=== PATIENT | male | born 1950 ===

== ENCOUNTER 2018-03-01 17:55 | Emergency (ER) | payer MEDICARE ==
--- NOTE | 2018-03-01 20:03 | UC ---
Lower Extremity/Ankle HPI - HPI Summary HPI Summary: 67 y/o male presents to the urgent care c/o left foot and ankle pain s/p slipping and twisting it on an uneven cement last night. Pt reports a similar injury happened about 2 weeks ago. But his foot is swollen and he is limping. Pain is 3/10 w/ walking and movement. Pt has not taking anything to alleviate symptoms, but he applied ice. Pt denies numbness or tingling sensation on the left lower extremity, calf pain, SOB, chest pain, abdominal pain, N/V/D. - History of Current Complaint Chief Complaint: UCLowerExtremity Stated Complaint: L FOOT COMPLAINT Time Seen by Provider: 03/01/18 19:55 Hx Obtained From: Patient Onset/Duration: Sudden Onset, Lasting Days - 1 day, Still Present Severity Initially: Mild Severity Currently: Mild Pain Intensity: 3 Pain Scale Used: 0-10 Numeric Aggravating Factor(s): Standing, Ambulation Alleviating Factor(s): Rest, Elevation, Ice Able to Bear Weight: Yes - Risk Factors Gout Risk Factors: Negative DVT Risk Factors: Negative Septic Arthritis Risk Factor: Negative - Allergies/Home Medications Allergies/Adverse Reactions: Allergies Allergy/AdvReac Type Severity Reaction Status Date / Time No Known Allergies Allergy Verified 03/01/18 18:16 Home Medications: Home Medications Artic Grace Oil* 03/01/18 [History] Ascorbic Acid TAB* [Vitamin C TAB*] 500 mg PO DAILY 03/01/18 [History Confirmed 03/01/18] Fish Oil/Borage/Flax/Om3,6,9 1 [Limon 3-6-9 Complex Softgel] 1 cap PO 03/01/18 [ History] Vitamin E CAP* 200 unit PO DAILY 03/01/18 [History Confirmed 03/01/18] PMH/Surg Hx/FS Hx/Imm Hx Previously Healthy: Yes Endocrine History: Dyslipidemia - Surgical History Surgical History: None - Family History Known Family History: Positive: Diabetes - Social History Occupation: Employed Full-time Lives: With Family Alcohol Use: Rare Substance Use Type: None Smoking Status (MU): Never Smoked Tobacco Review of Systems Constitutional: Negative Skin: Negative Eyes: Negative ENT: Negative Respiratory: Negative Cardiovascular: Negative Gastrointestinal: Negative Genitourinary: Negative Motor: Negative Neurovascular: Negative Musculoskeletal: Decreased ROM - left ankle, Other: - left ankle and foot pain and swelling s/p injury Neurological: Negative Psychological: Negative Is Patient Immunocompromised?: No All Other Systems Reviewed And Are Negative: Yes Physical Exam - Summary Physical Exam Summary: Vital Signs Reviewed: Yes General: well developed, well nourished obese male, sitting in the examining table w/o any apparent distress Eyes: Positive: Conjunctiva Clear - PERRLA, EOMI, ENT: Positive: Normal ENT inspection, Hearing grossly normal, Pharynx normal, TMs normal Neck: Positive: Supple, Nontender, No Lymphadenopathy Respiratory: Positive: Chest non-tender, Lungs clear, Normal breath sounds, No respiratory distress Cardiovascular: Positive: RRR, No Murmur, Pulses Normal, Brisk Capillary Refill Abdomen Description: Positive: Nontender, No Organomegaly, Soft. Negative: CVA Tenderness (R), CVA Tenderness (L) Bowel Sounds: Positive: Present Musculoskeletal: - Ankle: Pt is able to bear weight and ambulate w/ limping. The L ankle and foot are without obvious asymmetry or deformity when compared to the R ankle and foot. Mild Decreased ROM of ankle due to pain. Mild swelling at the lateral malleolus, with tenderness to palpation. No ecchymosis or bruising observed. No Tenderness to palpation over the medial malleolus , no swelling observed. Point tenderness over dorsal side of foot w/o swelling or bruising.Talar tilt test is negative for ligament laxity to valgus or varus stress. Negative anterior drawer. Peroneal nerve is intact with strong eversion and plantar flexion. Positive sensation over the Rt foot and Rt ankle, positive pulses, capillary refill intact Neurological Exam: Normal Psychological Exam: Normal Skin: warm and dry Triage Information Reviewed: Yes Vital Signs: Initial Vital Signs Temp 96.8 F 03/01/18 18:11 Pulse 74 03/01/18 18:11 Resp 16 03/01/18 18:11 BP 134/83 03/01/18 18:11 Pulse Ox 98 03/01/18 18:11 Lower Extremity Course/Dx - Course Course Of Treatment: 67 y/o male presents to the urgent care c/o left foot and ankle pain s/p slipping and twisting it on an uneven cement last night. Pt reports a similar injury happened about 2 weeks ago. But his foot is swollen and he is limping. Pain is 3/10 w/ walking and movement. Pt has not taking anything to alleviate symptoms, but he applied ice. Pt denies numbness or tingling sensation on the left lower extremity, calf pain, SOB, chest pain, abdominal pain, N/V/D.Hx obtained.LF foot and LF ankle X-ray ordered, Impression :There was no fracture, dislocation, soft tissue swelling or FB notedserved. Probably and ankle sprain. Pt's foot immobilized with carlos-bandage and gel splint. Pt Rx Ibuprofen PO for pain, If not improvement of symptoms in 1 week to f/u with Orthopedic DR Hernandez referral for further evaluation and treatment. Pt understood and agreed with D/C instructions - Differential Dx/Diagnosis Differential Diagnosis/HQI/PQRI: Contusion, Dislocation, Fracture (Closed), Sprain, Strain, Tendonitis Provider Diagnoses: 1- Left ankle pain s/p injury. 2-Left ankle sprain Discharge - Sign-Out/Discharge Documenting (check all that apply): Patient Departure - D/c home All imaging exams completed and their final reports reviewed: No - Discharge Plan Condition: Stable Disposition: HOME Prescriptions: Ibuprofen TAB* [Motrin TAB* 600 MG] 600 mg PO Q6H PRN #30 tab PRN Reason: pain Patient Education Materials: Ankle Sprain (ED) Referrals: Adalberto Hernandez MD [Medical Doctor] - 1 Week Jenn Rodriguez MD [Primary Care Provider] - 1 Week Additional Instructions: 1-Please take medications as directed to alleviate pain and swelling. 2-Please apply ice, keep your ankle immobilized with the splint and Carlos bandage. Elevate your ankle at night time 3- Please f/u with Orthopedic Dr Hernandez or your PCP in 1 week is not improvement of symptoms for further evaluation and treatment. - Billing Disposition and Condition Condition: STABLE Disposition: Home - Attestation Statements Provider Attestation: Per institutional requirements, I have reviewed the chart, however, I was not consulted specifically or made aware of this patient by the midlevel provider. I did not personally evaluate, interact with , or disposition this patient.
[2018-03-01 21:03] VITALS: BP 122/86
--- NOTE | 2018-03-02 08:01 | RAD ---
INDICATION: Left ankle injury. TECHNIQUE: 3 views of the left ankle were obtained. FINDINGS: There is diffuse soft tissue swelling. The bones are normal alignment. No fracture is seen. IMPRESSION: SOFT TISSUE SWELLING, NO FRACTURE IS SEEN. R0
--- NOTE | 2018-03-02 08:03 | RAD ---
Indication: Left foot pain. 3 views of left foot are reviewed. There is no fracture or dislocation. No other bone or joint abnormality is noted. IMPRESSION: No fracture of the left foot is noted. If there is persistent clinical concern follow-up imaging is suggested. R0
--- NOTE | 2018-03-02 13:47 | UC ---
- Progress Note Progress Note: RADIOLOGY READ NEGATIVE FOR FRACTURE OR DISLOCATION. NO CHANGE IN MGMT. - MONE JOSEPH MD Discharge - Sign-Out/Discharge Documenting (check all that apply): Post-Discharge Follow Up All imaging exams completed and their final reports reviewed: Yes - Discharge Plan Condition: Stable Disposition: HOME Prescriptions: Ibuprofen TAB* [Motrin TAB* 600 MG] 600 mg PO Q6H PRN #30 tab PRN Reason: pain Patient Education Materials: Ankle Sprain (ED) Referrals: Adalberto Hernandez MD [Medical Doctor] - 1 Week Jenn Rodriguez MD [Primary Care Provider] - 1 Week Additional Instructions: 1-Please take medications as directed to alleviate pain and swelling. 2-Please apply ice, keep your ankle immobilized with the splint and Carlos bandage. Elevate your ankle at night time 3- Please f/u with Orthopedic Dr Hernandez or your PCP in 1 week is not improvement of symptoms for further evaluation and treatment. - Billing Disposition and Condition Condition: STABLE Disposition: Home
== END 2018-03-01 21:13 | disposition home or self-care (01) ==
LOC: UCEAST 17:55
DX: S93.402A Sprain of unspecified ligament of left ankle, initial encounter (principal); X50.1XXA Overexertion from prolonged static or awkward postures, initial encounter; Y93.9 Activity, unspecified; Y92.480 Sidewalk as the place of occurrence of the external cause
CPT/HCPCS: 99213; G0463